=== PATIENT | male | born 1930 | race Caucasian/White ===

== ENCOUNTER 2017-07-31 15:36 | Inpatient (IN) | payer OTHER, BC ==
[~2017-07-31] VITALS: Ht 167.6 cm; Wt 76.2 kg
--- NOTE | ~2017-07-31 | EKG ---
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
--- NOTE | ~2017-07-31 | HC ---
[facility] [place] [address] CONSULTATION Name: MARIELA YAÑEZ Room #: 362-P ADM IN M.R.#: [id number] Admission: 07/31/17 Attend Phys: Raj Baez MD Discharge: Date of : [birth year] Report #: [id number] THIS REPORT FOR: //name// CC: [facility] physician/PCP Raj Baez CHIEF COMPLAINT: Left renal stone. HISTORY OF PRESENT ILLNESS: The patient is a very pleasant 86-year-old gentleman who is being seen today at the request of Dr. Baez for evaluation and management of a left proximal ureteral stone. He presented to [facility] yesterday with generalized body aches, left-sided abdominal pain and weakness yesterday. No history of kidney stones. Evaluation demonstrates hydronephrosis with a left proximal ureteral stone ____ elevated white count. ALLERGIES: None. ILLNESSES: Prostate cancer, Mckeon palsy, kidney stones, glaucoma. MEDICATIONS: Tramadol 50 mg every 6-8 hours p.r.n., aspirin 81 mg. PAST SURGICAL HISTORY: Prostate cancer surgery -- radical prostatectomy about 13 years ago. SOCIAL HISTORY: Possible alcohol and tobacco use. REVIEW OF SYSTEMS: He denies shortness of breath or chest pain. PHYSICAL EXAMINATION: GENERAL: He is a comfortable appearing gentleman. VITAL SIGNS: Temperature is 36.9, pulse of 95, respirations 20, blood pressure 129/61. ABDOMEN: Soft. He has a healed lower midline incision. LABORATORY DATA: White count is 15,000, hemoglobin 12.0, hematocrit 35.2, platelets 104,000. Sodium 133, potassium 3.5, chloride 103, CO2 of 18, BUN 58, creatinine is 3.1. Urine is slightly cloudy, pH 5.5, specific gravity is 1.020, protein is 2+, nitrites negative, leukocyte esterase 2+, greater than 25 white cells and 3-10 red cells. His chest x-ray shows no acute cardiopulmonary process. CT scan shows bilateral renal stones. In addition, there is a stone in the left proximal ureter measuring about 10 mm with a dilated left renal pelvis. IMPRESSION: Partially obstructing left proximal ureteral stone and elevated white count. PLAN: I recommend cystoscopy, retrograde pyelogram with stent placement, [address] [address] CONSULTATION Name: MARIELA YAÑEZ Room #: 362-P ADM IN M.R.#: [id number] Admission: 07/31/17 Attend Phys: Raj Baez MD Discharge: Date of : [birth year] Report #: [id number] hopefully to allow his kidney function to improve. Risks, benefits and complications were discussed in detail. I did explain that this does not manage her stone definitively, but allows the kidney to drain and get kidney function to recover and any infection to be treated. <ELECTRONICALLY SIGNED> By: Vern Akbar MD 08/01/17 1413 0848 09 MD amna Grace
--- NOTE | ~2017-07-31 | HC ---
[facility] [place] [address] CONSULTATION Name: MARIELA YAÑEZ Room #: 362-P ADM IN M.R.#: [id number] Admission: 07/31/17 Attend Phys: Raj Baez MD Discharge: Date of : [birth year] Report #: [id number] THIS REPORT FOR: //name// CC: [facility] physician/PCP Raj Baez DATE OF SERVICE: 08/03/2017 INFECTIOUS DISEASE CONSULTATION DATE OF SERVICE: 08/03/2017 ATTENDING PHYSICIAN: Raj Baez MD REQUESTING PHYSICIAN: Ortiz Munguia MD REASON FOR CONSULTATION: Bacteremia. HISTORY OF PRESENT ILLNESS: The patient is an 86-year-old white man admitted with history of weakness and found to have atrial fibrillation, acute kidney injury as well as subsequently findings compatible with kidney stone and urinary tract infection. The patient is evaluated by Dr. Akbar. The patient undergoes cystoscopy and placement of a left ureteral stent. The patient is found to have Klebsiella pneumoniae in urine and blood cultures and ID opinion is requested. Currently, the patient is feeling some better and has no recollection of ever being told he had atrial fibrillation or chronic kidney disease. Previous history of kidney stones. PAST MEDICAL HISTORY: Prostate cancer, previous history of kidney stones, Mckeon palsy, glaucoma, radical prostatectomy some 13 years ago or thereabouts. SOCIAL HISTORY: , 5 children, they live in town. The patient lives by himself. DRUG ALLERGIES: None listed. MEDICATIONS: The patient is on treatment with metoprolol 50 mg p.o. daily, calcium carbonate 500 mg t.i.d. p.r.n., tamsulosin 0.4 mg daily, Zosyn 2.25 grams IV every 8 hours, normal saline 1000 mL IV every 12 hours, oxycodone 1 tablet q.4h. p.r.n., ondansetron p.r.n. REVIEW OF SYSTEMS: Essentially noncontributory besides what has been stated above. PHYSICAL EXAMINATION: GENERAL: Well-developed man, not toxic looking, no distress. [address] [address] CONSULTATION Name: MARIELA YAÑEZ Room #: 362-P [facility] IN M.R.#: [id number] Admission: 07/31/17 Attend Phys: Raj Baez MD Discharge: Date of : [birth year] Report #: [id number] VITAL SIGNS: Highest temperature since admission 99.9, currently 98, pulse 102, respirations 18, BP 126/53, weight 76.6 kilogram, height 167.6 cm. HEENMT: Head normocephalic, atraumatic. Pupils equal, reactive, arcus cornealis bilaterally. Mouth: No thrush. NECK: Supple, no thyromegaly. LUNGS: Clear to auscultation. HEART: Irregularly irregular rhythm. No gallops or murmur. ABDOMEN: Soft, no masses or megaly. GENITAL AND RECTAL: Deferred. EXTREMITIES: No clubbing, cyanosis. NEUROLOGIC: Grossly within normal limits. LABORATORY DATA: On admission, BUN 52, creatinine 3.3. Repeat BUN and creatinine on 08/02/2017 revealed BUN to be 57, creatinine 2.7, mild elevation of total bilirubin on admission 1.2 mg/dL, albumin decreased 2.6 g/dL, NT-proBNP 8452, elevated. White blood cell count on admission 17,500; hemoglobin 12.8 g/dL, and repeat on 08/02/2016, white blood cell count is down to 13,000, hemoglobin 11.6 g/dL. The patient has thrombocytopenia. On admission, platelets 116,000 and on 08/02/2017 110,000. White blood cell count differential revealed 82% segmented neutrophils and 9% bands. A urinalysis on admission revealed 2+ protein, 3+ blood, 2+ leukocyte esterase. The microscopic exam is compatible with acute urinary tract infection. MICROBIOLOGY DATA: Blood cultures Klebsiella pneumoniae. Urine culture Klebsiella pneumoniae, sensitive to all tested antibiotics. RADIOLOGY EVALUATION: CT scan of abdomen and pelvis revealed bilateral kidney stones, 1 on the right mid pole of the kidney measuring 4 x 2 mm. There is an additional stone at the left ureteropelvic junction. Colonic diverticulosis noted as well. ASSESSMENT: 1. Acute pyelonephritis, complicated with bacteremia. 2. Kidney stones status post left ureteral stent. 3. Possible acute kidney injury. Question underlying chronic kidney disease. 4. History of cancer of the prostate, is status post radical prostatectomy. 5. New onset atrial fibrillation. 6. Mild thrombocytopenia and anemia, question etiology. SUGGESTIONS: At present, the patient appears to have improved on current regimen. Would recommend simplification of antibiotic regimen and decrease the frequency of intravenous infusion with Rocephin 1 gram IV daily. Once patient is stable and renal function possibly normalized, can change to oral antibiotics to complete at least 2 weeks of oral antibiotic. Possibility of recurrent UTI may need to be entertained in view of kidney stones. [facility] [address] [place] [address] CONSULTATION Name: MARIELA YAÑEZ Room #: 362-P ADM IN M.R.#: [id number] Admission: 07/31/17 Attend Phys: Raj Baez MD Discharge: Date of : [birth year] Report #: [id number] Thank you for requesting my suggestions in the care of your patient and I will continue to follow him along with you. <ELECTRONICALLY SIGNED> By: Chandra Munguia MD 08/04/17 0915 1207 1239 Chandra Munguia MD /nt
--- NOTE | ~2017-07-31 | O ---
[facility] [place] [address] OPERATIVE REPORT Name: MARIELA YAÑEZ Room #: 362-P ADM IN M.R.#: [id number] Admission: 07/31/17 Attend Phys: Raj Baez MD Discharge: Date of : [birth year] Report #: [id number] THIS REPORT FOR: //name// CC: [facility] physician/PCP Raj Baez DATE OF SERVICE: 08/01/2017 DATE OF SERVICE: 08/01/2017 PREOPERATIVE DIAGNOSES: Left proximal ureteral stone, urinary tract infection, elevated creatinine, hydronephrosis. POSTOPERATIVE DIAGNOSES: Left proximal ureteral stone, urinary tract infection, elevated creatinine, hydronephrosis. PROCEDURE: Cystoscopy, left retrograde pyelogram, left ureteral stent placement. SURGEON: Vern Akbar M.D. ANESTHESIA: General. INDICATIONS: The patient is a very pleasant 86-year-old gentleman who presented with malaise and abdominal pain. Upon evaluation, he was noted to have a 1 cm proximal ureteral stone with hydronephrosis. His creatinine was up to 3.3 on admission and 3.1 after hydration this morning. This is up from 1.25 in May of this year. He does have a recent history of kidney stones over the last 4 years. He also was noted to have an elevated white count of over 17,000 when he was admitted and 15,000 this morning with bacteria in his urine and bacteria in his blood. He and his family have been counseled with respect to treatment options and I have recommended urgent drainage of his kidney. Risks, benefits, complications including bleeding and sepsis have been discussed. They understand that he may ultimately require nephrostomy tube placement. He understands these procedures will simply drain kidney and allow the infection to be treated and these procedures will not remove the stone. Family understands I cannot predict all ramifications, risk of deep venous thrombosis, pulmonary embolism, heart attack, stroke and have been discussed as well. DESCRIPTION OF PROCEDURE: After obtaining informed consent, he was brought to the operating room and general anesthetic was administered. He was prepped and draped in lithotomy position by the operating personnel under anesthesia supervision. A time-out was performed. Preliminary fluoroscopic images showed an opacification in the left upper quadrant consistent with his known stone. The 21-Lithuanian ACMI cystoscope was introduced under direct vision. The anterior urethra was normal. The prostate had been surgically removed. There was a [facility] [address] [place] [address] OPERATIVE REPORT Name: MARIELA YAÑEZ Room #: 362-P [facility] IN .R.#: [id number] Admission: 07/31/17 Attend Phys: Raj Baez MD Discharge: Date of : [birth year] Report #: [id number] bladder neck contracture, but it did allow passage of the cystoscope. The bladder was smooth walled. No intrinsic mucosal lesions. Trigone and ureters were normal in configuration and location. I placed a sensor wire into the left ureter. There was a little bit of resistance at the level of the stone, but ultimately the proximal end of the wire went by the stone and at this point, there was pus started draining from the kidney. I placed an open-ended ureteral catheter over the wire and injected a small amount of contrast. This seemed to fill up the renal pelvis and there was a filling defect where the stone was located. I then placed a ZIPwire through the open-ended ureteral catheter. I removed the open-ended ureteral catheter. I placed a 6-Lithuanian x 24 cm Contour stent into the left renal pelvis. Purulent debris was draining through the stent. In fact, during the post-placement fluoroscopic images, there was contrast draining alongside the stent into the ureter, clear the stent was draining. The proximal curl was overlying the left renal pelvis, distal curl was in the bladder. I withdrew the cystoscope and placed a 16-Lithuanian Mckeon catheter. He was transferred to the recovery room where he arrived in stable condition. Findings were then shared with his family. <ELECTRONICALLY SIGNED> By: Vern Akbar MD 08/02/17 0655 1543 1602 Vern Akbar MD /nt
--- NOTE | ~2017-07-31 | HC ---
[facility] [place] [address] CONSULTATION Name: MARIELA YAÑEZ Room #: 362-P [facility] IN M.R.#: [id number] Admission: 07/31/17 Attend Phys: Raj Baez MD Discharge: Date of : [birth year] Report #: [id number] THIS REPORT FOR: //name// CC: [facility] physician/PCP Raj Baez REASON FOR CONSULTATION: AFib. HISTORY OF PRESENT ILLNESS: The patient is an 86-year-old male presented to the ER with increased fatigue, weakness for several days, found to have a ureteral stone and also found to be in AFib. He denies any chest pain or shortness of breath. He denies PND or orthopnea. He denies fevers or chills. REVIEW OF SYSTEMS: GENERAL: No fevers or chills. HEENT: No blurred vision. CARDIOVASCULAR: As above. PULMONARY: No productive cough. GASTROINTESTINAL: No nausea or vomiting. GENITOURINARY: No dysuria. MUSCULOSKELETAL: No myalgias or arthralgias. ENDOCRINE: No heat or cold intolerance. PAST MEDICAL HISTORY: Includes prostate cancer and kidney stones. SOCIAL HISTORY: Does not smoke. FAMILY HISTORY: Noncontributory. ALLERGIES: None. MEDICATIONS: Aspirin and tramadol. PHYSICAL EXAMINATION: VITAL SIGNS: Temperature is 36.8, pulse 96, respirations 16, blood pressure 111/67, and sats 98%. GENERAL: He is in no acute distress, he is post-procedure from his kidney stone issue. HEENT: Oropharynx is clear. NECK: Supple, no thyromegaly. HEART: Irregularly irregular with no murmurs, rubs, or gallops. LUNGS: Clear to auscultation bilaterally. ABDOMEN: Soft, nontender, nondistended with no hepatosplenomegaly. EXTREMITIES: No clubbing, cyanosis, or edema. NEUROLOGIC: Cranial nerves 2-12 are intact. LABORATORY DATA: White count is 15, hemoglobin is 12, platelets 104, bands are [facility] [address] [place] [address] CONSULTATION Name: MARIELA YAÑEZ Room #: 362-P ADM IN M.R.#: [id number] Admission: 07/31/17 Attend Phys: Raj Baez MD Discharge: Date of : [birth year] Report #: [id number] 20. Sodium 133, potassium 3.5, BUN 58, creatinine 3.1. Troponin is negative. ProBNP is 8452. TSH is normal. His EKG showed atrial fibrillation with controlled ventricular response. His chest x-ray shows no acute pulmonary process. In summary, the patient is an 86-year-old with no known heart disease who is in atrial fibrillation. His rates are controlled. Given his recent procedure, I will not initiate anticoagulation at this time. We could start on aspirin perhaps tomorrow. I will order an echocardiogram to evaluate his LV size and function. We will continue to follow. By: 1607 1624 Ortiz Munguia MD /magen
--- NOTE | ~2017-07-31 | 2DMMODE ---
[facility] [address] [place] [address] 2 D/M-MODE ECHOCARDIOGRAM Name: PARIMARIELA Room #: 362-P [facility] IN M.R.#: [id number] Admission: 07/31/17 Attend Phys: Raj Baez, Discharge: Date of : [birth year] Date of Service: 08/02/17 1539 Report #: [id number] THIS REPORT FOR: //name// APPROVED REPORT Study performed: 08/02/2017 14:55:20 EXAM: Comprehensive 2D, Doppler, and color-flow Echocardiogram Patient Location: Echo lab Room #: 362 Status: routine BSA: 1.86 HR: 105 bpm BP: 104/45 mmHg Rhythm: Atrial Fibrillation Other Information Study Quality: Adequate Indications New onset Afib. Elevated BNP. 2D Dimensions RVDd: 39.54 mm LVEF(%): 62.83 (>50%) IVSd: 10.54 (7-11mm) LVOT Diam: 19.77 (18-24mm) LVDd: 46.99 mm PWd: 10.52 (7-11mm) LVDs: 31.04 (25-40mm) Aortic Root: 34.98 mm Rader's LVEF: 62.83 % Volumes Left Atrial Volume (Systole) Single Plane 4CH: 84.72 mL Single Plane 2CH: 71.10 mL LA ESV Index: 45.00 mL/m2 Aortic Valve AoV Peak Jay.: 1.12 m/s AO Peak Gr.: 5.06 mmHg LVOT Max P.66 mmHg LVOT Max V: 0.81 m/s ILIANA Vmax: 2.22 cm2 Mitral Valve MV Decel. Time: 191.16 ms MV E Max Jay.: 1.03 m/s [facility] [address] [place] [address] 2 D/M-MODE ECHOCARDIOGRAM Name: MARIELA YAÑEZ Room #: 362-[facility] IN .R.#: [id number] Admission: 07/31/17 Attend Phys: Raj Baez, Discharge: Date of : [birth year] Date of Service: 08/02/17 1539 Report #: [id number] Pulmonary Valve PV Peak Jay.: 0.83 m/s PV Peak Gr.: 2.80 mmHg Tricuspid Valve TR Peak Jay.: 2.81 m/s RAP Estimate: 5.00 mmHg TR Peak Gr.: 31.71 mmHg PA Pressure: 37.00 mmHg Left Ventricle The left ventricle is normal size. There is normal LV segmental wall motion. There is normal left ventricular wall thickness. Left ventricular systolic function is normal. LVEF is 55-60%. This study is not technically sufficient to allow evaluation of the LV diastolic function due to atrial fibrillation. Right Ventricle The right ventricle is normal size. The right ventricular systolic function is normal. Atria Left atrium is moderately dilated. The right atrium size is normal. Aortic Valve The aortic valve is normal in structure. No aortic regurgitation is present. There is no aortic valvular stenosis. Mitral Valve Mitral valve leaflets are mildly thickened. Mild mitral annular calcification. Moderate to severe mitral regurgitation Tricuspid Valve The tricuspid valve is normal in structure. Moderate tricuspid regurgitation. Estimated PAP is 35-40mmHg. Pulmonic Valve The pulmonary valve is normal in structure. Trace pulmonic regurgitation. Great Vessels The aortic root is normal in size. Ascending aorta is not well visualized. IVC is normal in size and collapses >50% with inspiration. Pericardium [facility] [address] [place] [address] 2 D/M-MODE ECHOCARDIOGRAM Name: MARIELA YAÑEZ Room #: 362-P [facility] IN M.R.#: [id number] Admission: 07/31/17 Attend Phys: Raj Baez, Discharge: Date of : [birth year] Date of Service: 08/02/17 1539 Report #: [id number] There is no pericardial effusion. <Conclusion> The left ventricle is normal size. LVEF is 55-60%. Left atrium is moderately dilated. The aortic valve is normal in structure. Mitral valve leaflets are mildly thickened. Mild mitral annular calcification. Moderate to severe mitral regurgitation The tricuspid valve is normal in structure. Moderate tricuspid regurgitation. Estimated PAP is 35-40mmHg. The pulmonary valve is normal in structure. Trace pulmonic regurgitation. There is no pericardial effusion. <ELECTRONICALLY SIGNED> By: Delvis Solis MD 08/02/17 1539 1539 1539 Delvis Solis MD /INF
[~2017-07-31 15:36] MED LIST: BAYER CHEWABLE81 MG PO; TRAMADOL 50 MG50 MG PO
[2017-07-31 15:40] VITALS: BP 126/66
[2017-07-31] MEDS ORDERED: EYE GTT (15:44)
[2017-07-31 16:21] LABS: HEMATOCRIT 37.7 % (42.0-52.0); HEMOGLOBIN 12.8 gm/dL (14.0-18.0); MCH 30.9 pg (26.0-34.0); MCHC 33.9 g/dL (28.0-37.0); MCV 91.3 fL (80.0-100.0); PLATELET COUNT 116 thou/uL (150-400); RBC 4.13 mil/uL (4.50-6.00); WBC 17.5 thou/uL (4.0-11.0)
[2017-07-31 16:28] LABS: MANUAL DIFF YES
[2017-07-31 16:32] LABS: ANION GAP 12 mmol/L (7-16); BUN 52 mg/dL (7-18); CALCIUM 8.5 mg/dL (8.5-10.1); CHLORIDE 100 mmol/L (98-107); CO2 20 mmol/L (21-32); CREATININE 3.3 mg/dL (0.7-1.3); GLUCOSE 111 mg/dL (74-106); POTASSIUM 3.5 mmol/L (3.5-5.1); SODIUM 132 mmol/L (136-145)
[2017-07-31 16:38] LABS: INR 1.1; PROTIME 10.7 Seconds (9.3-11.4)
[2017-07-31 16:39] LABS: ALBUMIN 2.6 g/dL (3.4-5.0); ALKALINE PHOSPHATASE 83 U/L (46-116); SGOT 24 U/L (15-37); SGPT 25 U/L (30-65); TOTAL BILIRUBIN 1.2 mg/dL (<0.1-1.0); TOTAL PROTEIN 7.2 g/dL (6.4-8.2); TROPONIN-I < 0.04 ng/mL (<0.04-0.07)
[2017-07-31 17:11] LABS: ABSOLUTE NEUTROPHILS 15.9 thou/uL (1.4-8.2); PLATELET ESTIMATE NORMAL; TOTAL CELL COUNT 100
[2017-07-31 17:41] LABS: URINE BLOOD 3+ (Negative); URINE COLOR YELLOW; URINE GLUCOSE-RANDOM* NEGATIVE (Negative); URINE KETONES NEGATIVE (Negative); URINE NITRITE NEGATIVE (Negative); URINE PROTEIN (DIPSTICK) 2+ (Negative)
[2017-07-31 17:42] LABS: URINE BILIRUBIN NEGATIVE (Negative)
[2017-07-31 17:48] LABS: COARSE GRANULAR CASTS 0-3 Few /LPF (None Seen); SQUAMOUS None Seen /LPF (0-3); URINE RBC 3-10 Few /HPF (0-2); URINE WBC >25 Many /HPF (0-5)
[2017-07-31 17:49] LABS: CRYSTALS None Seen /LPF (None Seen)
[2017-07-31 18:44] VITALS: BP 121/44
[2017-07-31 19:19] VITALS: BP 135/65
[2017-07-31 19:40] VITALS: BP 121/62
[2017-08-01] VITALS (7 sets, daily range): BP systolic 106–135; BP diastolic 50–82
[2017-08-01 05:28] LABS: HEMATOCRIT 35.2 % (42.0-52.0); MCH 31.1 pg (26.0-34.0); MCV 91.4 fL (80.0-100.0); PLATELET COUNT 104 thou/uL (150-400); RBC 3.85 mil/uL (4.50-6.00); RDW 13.9 % (10.5-14.5)
[2017-08-01 05:32] LABS: CALCIUM 7.8 mg/dL (8.5-10.1); CREATININE 3.1 mg/dL (0.7-1.3); POTASSIUM 3.5 mmol/L (3.5-5.1)
[2017-08-01 05:35] LABS: MANUAL DIFF YES
[2017-08-01 06:54] LABS: ABSOLUTE NEUTROPHILS 13.7 thou/uL (1.4-8.2); PLATELET ESTIMATE NORMAL; TOTAL CELL COUNT 100
[2017-08-02 04:00] VITALS: BP 121/64
[2017-08-02 06:30] LABS: HEMATOCRIT 34.4 % (42.0-52.0); HEMOGLOBIN 11.6 gm/dL (14.0-18.0); MCHC 33.7 g/dL (28.0-37.0); MCV 91.9 fL (80.0-100.0); PLATELET COUNT 110 thou/uL (150-400); RBC 3.75 mil/uL (4.50-6.00)
[2017-08-02 06:32] LABS: MANUAL DIFF YES
[2017-08-02 06:36] LABS: CALCIUM 7.2 mg/dL (8.5-10.1); CREATININE 2.7 mg/dL (0.7-1.3); POTASSIUM 3.4 mmol/L (3.5-5.1)
[2017-08-02 08:28] VITALS: BP 120/66
[2017-08-02 08:43] LABS: ABSOLUTE NEUTROPHILS 11.3 thou/uL (1.4-8.2); TOTAL CELL COUNT 100
[2017-08-02 11:19] VITALS: BP 104/45
[2017-08-02 20:00] VITALS: BP 105/62
[2017-08-03 04:00] VITALS: BP 124/53
[2017-08-03 08:00] VITALS: BP 126/53
[2017-08-03 12:45] VITALS: BP 109/61
[2017-08-03 15:17] VITALS: BP 109/50
[2017-08-03 19:55] VITALS: BP 103/54
[2017-08-04 04:10] VITALS: BP 101/59
[2017-08-04 07:19] LABS: ALBUMIN 1.7 g/dL (3.4-5.0); CALCIUM 6.4 mg/dL (8.5-10.1); CREATININE 2.5 mg/dL (0.7-1.3); PHOSPHORUS 2.2 mg/dL (2.5-4.9); POTASSIUM 3.5 mmol/L (3.5-5.1)
[2017-08-04 08:15] VITALS: BP 145/61
[2017-08-04] MEDS ORDERED: FLOMAX0.4 MG PO (10:14)
[2017-08-04] MEDS ORDERED: METOPROLOL SUCC50 MG PO (10:14)
[2017-08-04] MEDS ORDERED: CEFUROXIME500 MG PO (10:15)
[2017-08-04 11:55] VITALS: BP 133/61
[2017-08-04 12:25] VITALS: BP 133/61
[2017-08-04 13:00] VITALS: BP 133/61
[2017-08-04 17:29] VITALS: BP 133/61
== END 2017-08-04 17:59 | disposition home health service (06) | DRG 871 ==
LOC: ER 15:36 → 3W 18:08 → EROBS 18:08 → 4E 18:58 → EROBS 19:07 → 3W 19:23 → ENTRNSPT 08-04 17:44 → 3W 08-04 17:59
PROVIDERS: Hospitalist; Nurse Practitioner Acute Care; Nurse Practitioner Family; Specialist
PROC: BT1F1ZZ Fluoroscopy of Left Kidney, Ureter and Bladder using Low Osmolar Contrast (ICD-10-PCS; principal; 2017-08-01)
PROC: 0T778DZ Dilation of Left Ureter with Intraluminal Device, Via Natural or Artificial Opening Endoscopic (ICD-10-PCS; principal; 2017-08-01)
DX: A41.59 Other Gram-negative sepsis (principal); N17.0 Acute kidney failure with tubular necrosis; E43 Unspecified severe protein-calorie malnutrition; E87.1 Hypo-osmolality and hyponatremia; N10 Acute pyelonephritis; N13.2 Hydronephrosis with renal and ureteral calculous obstruction; H40.9 Unspecified glaucoma; I48.91 Unspecified atrial fibrillation; D64.9 Anemia, unspecified; D69.6 Thrombocytopenia, unspecified; F17.210 Nicotine dependence, cigarettes, uncomplicated; F10.10 Alcohol abuse, uncomplicated; Z71.41 Alcohol abuse counseling and surveillance of alcoholic; Z71.6 Tobacco abuse counseling; Z23 Encounter for immunization; Z68.27 Body mass index [BMI] 27.0-27.9, adult; Z98.41 Cataract extraction status, right eye; Z98.42 Cataract extraction status, left eye; Z90.79 Acquired absence of other genital organ(s); Z79.899 Other long term (current) drug therapy; Z79.82 Long term (current) use of aspirin; Z87.442 Personal history of urinary calculi; Z85.46 Personal history of malignant neoplasm of prostate
CPT/HCPCS: 10779; 50101; 50455; 50478; 51620; 51767; 56674; 62110; 62900; 70005